=== PATIENT | male | born 1985 | race Caucasian/White ===

== ENCOUNTER 2017-06-13 19:34 | Emergency (ER) | payer OTHER ==
[2017-06-13 19:45] VITALS: TEMP 98.2
--- NOTE | 2017-06-13 20:10 | EDPHY ---
H & P Time Seen by Provider: 06/13/17 19:48 HPI/ROS: CHIEF COMPLAINT: Right ankle pain HISTORY OF PRESENT ILLNESS: Patient is a 31-year-old male presents emergency department after falling while rock climbing. The patient was Lied climber when he fell about 15 feet slammed his right ankle into the wall. It swelled immediately. He has moderate pain. Swelling has improved. He previously sprained his right ankle. He sustained no other injuries. He did not strike his head or lose consciousness. He has no back or neck pain. REVIEW OF SYSTEMS: My complete review of systems is negative except as mentioned in the HPI. Past Medical/Surgical History: Includes Previous right ankle strain Smoking Status: Never smoked Physical Exam: Vitals noted General Appearance: Alert and no distress. Head: Pupils equal. Normal. Respiratory: No respiratory distress. Cardiac: regular rate and rhythm. Extremities: Patient has right lateral ankle swelling and tenderness palpation. No deformity. No laceration or open wound. Neurovascular intact distally.. Skin: No rashes or lesions. Neuro: Alert. Normal mood and affect. Constitutional: Initial Vital Signs Temperature (C) 36.8 C 06/13/17 19:43 Heart Rate 72 06/13/17 19:43 Respiratory Rate 18 06/13/17 19:43 Blood Pressure 137/94 H 06/13/17 19:43 O2 Sat (%) 99 06/13/17 19:43 O2 Delivery Mode Room Air Allergies/Adverse Reactions: No Known Allergies Allergy (Unverified 06/13/17 19:45) Home Medications: Medication Instructions Recorded Escitalopram Oxalate [Lexapro] 10 mg PO 06/13/17 Medical Decision Making ED Course/Re-evaluation: In the emergency department I discussed possible etiologies with the patient. I answered his questions. An x-ray of his right ankle was ordered. Right ankle x-ray: Please refer the dictated report The discussed the results with the patient and answered all his questions. He was given warnings prior to leaving. Differential Diagnosis: My differential includes but is not limited to sprain, strain, fracture, contusion Departure - Departure Disposition: Home, Routine, Self-Care Condition: Good Referrals: [facility] [Primary Care Provider] - As per Instructions
[2017-06-13] MEDS ORDERED: IBUPROFEN 600 MG TAB PO ONE (20:19)
[2017-06-13 20:56] VITALS: BP 122/73; PULSE 73; RESP 15; O2SAT 94
== END 2017-06-13 20:50 | disposition home or self-care (01) ==
DX: S93.401A Sprain of unspecified ligament of right ankle, initial encounter (principal); W17.89XA Other fall from one level to another, initial encounter; Y99.8 Other external cause status; Y93.31 Activity, mountain climbing, rock climbing and wall climbing
CPT/HCPCS: L4350